=== PATIENT | male | born 1990 | race Caucasian/White ===

== ENCOUNTER 2025-07-03 08:31 | Emergency (ER) | payer MEDICAID ==
[~2025-07-03] VITALS: Ht 182.9 cm; Wt 72.6 kg
[2025-07-03 08:35] VITALS: BP 119/80
[2025-07-03] MEDS ORDERED: OXYC-128 PO (11:07)
[2025-07-03 11:37] VITALS: BP 130/82; O2SAT 97
== END 2025-07-03 11:43 | disposition home or self-care (01) ==
LOC: ER 08:31
DX: S42.001A Fracture of unspecified part of right clavicle, initial encounter for closed fracture (principal); W18.30XA Fall on same level, unspecified, initial encounter; Y93.89 Activity, other specified; Y92.89 Other specified places as the place of occurrence of the external cause; Y99.9 Unspecified external cause status
CPT/HCPCS: 72072; 73030; A4606; A4663